=== PATIENT | female | born 1990 | race African-American/Black ===

== ENCOUNTER 2017-12-21 04:25 | Emergency (ER) | payer MEDICAID ==
[~2017-12-21] VITALS: Ht 165.1 cm; Wt 59.0 kg
[2017-12-21 07:26] LABS: BASOPHILS % 0.4 % (0.0-2.0); EOSINOPHILS % 1.2 % (0.0-5.0); HEMATOCRIT. 37.3 % (36.0-48.0); HEMOGLOBIN. 12.5 g/dL (12.0-16.0); LYMPHOCYTES % 15.7 % (20.0-50.0); MEAN CORPUSCULAR HEMOGLOBIN 25.5 pg (28.0-32.0); MEAN CORPUSCULAR VOLUME 76.4 fL (81.0-99.0); MEAN PLATELET VOLUME 8.5 fl (7.4-10.4); MONOCYTES % 5.8 % (2.0-8.0); NEUTROPHILS % 76.9 % (40.0-76.0); PLATELET 216 x1000/uL (130-400); RED BLOOD CELL COUNT 4.88 mill/uL (4.2-5.4); RED CELL DISTRIBUTION WIDTH 15.3 % (11.6-14.6)
[2017-12-21 07:34] LABS: CHLORIDE 108 mEq/L (98-107)
[2017-12-21 07:40] LABS: ETHANOL BLOOD < 10 mg/dL
[2017-12-21 07:43] LABS: CLARITY URINE CLEAR (CLEAR); COLOR URINE YELLOW (YELLOW); KETONES URINE NEGATIVE (NEGATIVE); LEUKOCYTE ESTERASE URINE NEGATIVE (NEGATIVE); NITRITE URINE NEGATIVE (NEGATIVE); OCCULT BLOOD URINE NEGATIVE (NEGATIVE); PH URINE 8.5 (4.5-8.0); PROTEIN URINE NEGATIVE (NEGATIVE); SPECIFIC GRAVITY URINE 1.019 (1.005-1.030)
[2017-12-21 07:59] LABS: *BARBITURATES SCREEN URINE NEGATIVE (NEGATIVE); *BENZODIAZEPINES SCREEN URINE NEGATIVE (NEGATIVE); *COCAINE SCREEN URINE NEGATIVE (NEGATIVE); METHADONE URINE SCREEN NEGATIVE (NEGATIVE)
[2017-12-21 08:00] LABS: CANNABINOID URINE SCREEN NEGATIVE (NEGATIVE); OPIATES URINE SCREEN NEGATIVE (NEGATIVE); PHENCYCLIDINE URINE SCREEN NEGATIVE (NEGATIVE)
[2017-12-21 08:01] LABS: *AMPHETAMINES SCREEN URINE NEGATIVE (NEGATIVE)
[2017-12-21 08:01] LABS: T4 FREE 1.24 ng/dL (0.76-1.46)
[2017-12-21 09:38] VITALS: BP 125/74
== END 2017-12-21 09:46 | disposition home or self-care (01) ==
LOC: ER 04:25
DX: R56.9 Unspecified convulsions (principal); R22.1 Localized swelling, mass and lump, neck; R07.89 Other chest pain
CPT/HCPCS: 36415; 70450; 71045; 80053; 80305; 81003; 81025; 82962; 84439; 84443; 85025; 99285; G0482

== ENCOUNTER 2018-03-01 08:16 | Emergency (ER) | payer MEDICAID ==
[~2018-03-01] VITALS: Ht 167.6 cm; Wt 61.0 kg
[2018-03-01] MEDS ORDERED: LAMOTRIGINE 25MG TABLET PO STA (08:51)
[2018-03-01 09:13] LABS: BASOPHILS % 0.5 % (0.0-2.0); EOSINOPHILS % 3.8 % (0.0-5.0); HEMATOCRIT. 37.7 % (36.0-48.0); HEMOGLOBIN. 12.2 g/dL (12.0-16.0); LYMPHOCYTES % 32.9 % (20.0-50.0); MEAN CORPUSCULAR VOLUME 77.2 fL (81.0-99.0); MEAN PLATELET VOLUME 8.5 fl (7.4-10.4); MONOCYTES % 5.8 % (2.0-8.0); PLATELET 223 x1000/uL (130-400); RED BLOOD CELL COUNT 4.88 mill/uL (4.2-5.4); RED CELL DISTRIBUTION WIDTH 14.6 % (11.6-14.6)
[2018-03-01 09:27] LABS: CHLORIDE 110 mEq/L (98-107)
[2018-03-01 11:45] VITALS: BP 128/73
== END 2018-03-01 12:00 | disposition home or self-care (01) ==
LOC: ER 08:31
DX: G40.909 Epilepsy, unspecified, not intractable, without status epilepticus (principal); Z91.14 Patient's other noncompliance with medication regimen; D72.819 Decreased white blood cell count, unspecified
CPT/HCPCS: 36415; 80048; 85025; 93005; 99285; Z7610

== ENCOUNTER 2021-10-05 04:14 | Emergency (ER) | payer MEDICAID ==
[~2021-10-05] VITALS: Ht 165.1 cm; Wt 60.0 kg
[2021-10-05] MEDS ORDERED: SODIUM CHLORIDE 0.9% 1,000 ML IV ONE (04:45)
[2021-10-05 05:26] LABS: BASOPHILS % 0.3 % (0.0-2.0); EOSINOPHILS % 0.2 % (0.0-5.0); HEMATOCRIT. 39.1 % (36.0-48.0); HEMOGLOBIN. 12.5 g/dL (12.0-16.0); LYMPHOCYTES % 15.4 % (20.0-50.0); MEAN CORPUSCULAR HEMOGLOBIN 25.3 pg (28.0-32.0); MEAN CORPUSCULAR VOLUME 78.9 fL (81.0-99.0); MEAN PLATELET VOLUME 9.1 fl (7.4-10.4); MONOCYTES % 5.8 % (2.0-8.0); NEUTROPHILS % 78.3 % (40.0-76.0); PLATELET 250 x1000/uL (130-400); RED BLOOD CELL COUNT 4.95 mill/uL (4.2-5.4); RED CELL DISTRIBUTION WIDTH 14.2 % (11.6-14.6)
[2021-10-05 05:29] LABS: CHLORIDE 108 mEq/L (98-107)
[2021-10-05 06:03] LABS: HCG SCREEN NEGATIVE
[2021-10-05] MEDS ORDERED: IOHEXOL-300 100 ML BOTTLE ONE (06:25)
[2021-10-05 06:56] LABS: INR 1.1; PARTIAL THROMBOPLASTIN TIME 25.7 sec (23.4-31.0); PROTHROMBIN TIME 12.1 sec (9.6-11.0)
[2021-10-05 08:15] VITALS: BP 106/64
== END 2021-10-05 09:40 | disposition home or self-care (01) ==
LOC: ER 04:14
DX: R53.1 Weakness (principal); N64.89 Other specified disorders of breast; L76.22 Postprocedural hemorrhage of skin and subcutaneous tissue following other procedure; R79.9 Abnormal finding of blood chemistry, unspecified; G40.909 Epilepsy, unspecified, not intractable, without status epilepticus; Z98.82 Breast implant status
CPT/HCPCS: 36415; 71045; 71260; 80053; 84703; 85025; 85610; 85730; 86850; 86900; 86901; 93005; 96360; 99291; J7030; Q9967